=== PATIENT | female | born 1945 | race Caucasian/White ===

== ENCOUNTER → 2020-06-09 | Outpatient (CLI) | payer OTHER ==
[~2020-06-09] VITALS: Ht 157.5 cm; Wt 78.9 kg
== END ==
LOC: OPSV 11:00
DX: M81.0 Age-related osteoporosis without current pathological fracture (principal)
CPT/HCPCS: 96365; J3489

== ENCOUNTER → 2021-06-28 | Outpatient (CLI) | payer OTHER | LOC: KOH-I 13:17 | DX: M25.561 Pain in right knee (principal); M76.9 Unspecified enthesopathy, lower limb, excluding foot | CPT/HCPCS: 73562 ==

== ENCOUNTER → 2021-07-06 | Outpatient (CLI) | payer OTHER | LOC: KOH-I 08:04 | DX: M25.561 Pain in right knee (principal); M84.361A Stress fracture, right tibia, initial encounter for fracture; R93.6 Abnormal findings on diagnostic imaging of limbs | CPT/HCPCS: 73721 ==

== ENCOUNTER → 2021-09-15 | Outpatient (CLI) | payer OTHER ==
[~2021-09-15] VITALS: Ht 157.5 cm; Wt 78.9 kg
== END ==
LOC: OPSV 08:00
DX: M81.0 Age-related osteoporosis without current pathological fracture (principal)
CPT/HCPCS: 96365; J3489